=== PATIENT | female | born 1990 | race Caucasian/White ===

== ENCOUNTER 2020-11-07 16:20 | Emergency (ER) | payer BC ==
[2020-11-07 16:41] VITALS: BP 128/77; PULSE 95; TEMP 97.8; BMI 29.4
== END 2020-11-07 16:59 | disposition home or self-care (01) ==
LOC: FER 16:20
DX: G57.11 Meralgia paresthetica, right lower limb (principal)
CPT/HCPCS: 99281-25

== ENCOUNTER 2021-01-18 12:28 | Emergency (ER) | payer BC ==
[2021-01-18 12:55] VITALS: BP 125/82; PULSE 84; TEMP 97.9; BMI 29.2
[2021-01-18 14:44] LABS: BASO % 0.9 % (0-2.0); EOS % 1.2 % (0-4.5); HEMATOCRIT 38.4 % (32.4-45.2); HEMOGLOBIN 13.1 GM/dL (10.7-15.3); LYMPH % 27.5 % (8-40); MCH 30.2 pg (25.7-33.7); MCHC 34.2 g/dl (32.0-36.0); MEAN CELL VOLUME 88.4 fl (80-96); MEAN PLT VOLUME 9.3 fl (7.5-11.1); MONO % 8.7 % (3.8-10.2); NEUT % 61.7 % (42.8-82.8); PLATELET COUNT 191 10^3/uL (134-434); RBC 4.34 M/mm3 (3.60-5.2); RDW 13.9 % (11.6-15.6); WHITE BLOOD COUNT 6.2 K/mm3 (4.0-10.0)
[2021-01-18 15:02] LABS: CHLORIDE 105 mmol/L (98-107); SODIUM 137 mmol/L (136-145)
[2021-01-18 15:04] LABS: ALBUMIN 4.1 g/dl (3.4-5.0); ANION GAP 6 MMOL/L (8-16); BLOOD UREA NITROGEN 8.4 mg/dL (7-18); CALCIUM 8.7 mg/dL (8.5-10.1); CO2 26 mmol/L (21-32)
[2021-01-18 15:05] LABS: GLUCOSE,RANDOM 79 mg/dL (74-106)
[2021-01-18 15:07] LABS: CREATININE 0.7 mg/dL (0.55-1.3); SGOT/AST 15 U/L (15-37); SGPT/ALT 23 U/L (13-61)
[2021-01-18 15:09] LABS: BILIRUBIN,TOTAL 0.7 mg/dL (0.2-1); TOT PROT 7.6 g/dl (6.4-8.2)
[2021-01-18 15:10] LABS: ALK PHOS 53 U/L (45-117)
== END 2021-01-18 15:43 | disposition home or self-care (01) ==
LOC: JER 12:28
DX: R06.9 Unspecified abnormalities of breathing (principal)
CPT/HCPCS: 36415; 80053; 84443; 84484; 85025; 93005; 93010; 99284-25; C9803; U0003; U0005

== ENCOUNTER 2021-08-03 16:27 | Emergency (ER) | payer BC ==
[2021-08-03 16:42] VITALS: TEMP 98.2; BMI 28.3
[2021-08-03 18:50] LABS: PH,URINE 7.5 (5.0-8.0); URINE APPEARANCE CLEAR; URINE BILIRUBIN NEGATIVE (NEGATIVE); URINE COLOR YELLOW; URINE GLUCOSE (UA) NEGATIVE (NEGATIVE); URINE KETONE NEGATIVE (NEGATIVE); URINE LEUK ESTERASE NEGATIVE (NEGATIVE); URINE NITRITE NEGATIVE (NEGATIVE); URINE PROTEIN NEGATIVE (NEGATIVE); URINE UROBILINOGEN 0.2 mg/dL (0.2-1.0)
[2021-08-03 18:52] LABS: HCG,QUALITATIVE URINE Negative
[2021-08-03 19:37] LABS: BASO % 0.8 % (0-2.0); EOS % 1.7 % (0-4.5); HEMATOCRIT 38.2 % (32.4-45.2); HEMOGLOBIN 12.6 GM/dL (10.7-15.3); LYMPH % 31.7 % (8-40); MCH 29.5 pg (25.7-33.7); MCHC 33.1 g/dl (32.0-36.0); MEAN CELL VOLUME 89.1 fl (80-96); MEAN PLT VOLUME 9.8 fl (7.5-11.1); MONO % 9.9 % (3.8-10.2); NEUT % 55.9 % (42.8-82.8); PLATELET COUNT 227 10^3/uL (134-434); RBC 4.29 M/mm3 (3.60-5.2); RDW 13.9 % (11.6-15.6); WHITE BLOOD COUNT 7.2 K/mm3 (4.0-10.0)
[2021-08-03 19:55] LABS: CALCIUM 9.3 mg/dL (8.5-10.1)
[2021-08-03 19:56] LABS: ALBUMIN 4.1 g/dl (3.4-5.0); BLOOD UREA NITROGEN 15.6 mg/dL (7-18)
[2021-08-03 19:59] LABS: CREATININE 0.8 mg/dL (0.55-1.3)
[2021-08-03 20:01] LABS: BILIRUBIN,TOTAL 0.5 mg/dL (0.2-1); TOT PROT 7.7 g/dl (6.4-8.2)
[2021-08-03] MEDS ORDERED: MAG HYDROX/AL HYDROX/SIMETH 30 ML UNIT-DOSE CUP PO ONE (20:54)
[2021-08-03] MEDS ORDERED: FAMOTIDINE 20 MG TABLET PO ONE (20:54)
[2021-08-03] MEDS ORDERED: FAMOTIDINE 20 MG TABLET ONE (21:17)
[2021-08-03] MEDS ORDERED: MAG HYDROX/AL HYDROX/SIMETH 30 ML UNIT-DOSE CUP ONE (21:17)
[2021-08-03 21:38] VITALS: BP 125/78; PULSE 71
== END 2021-08-03 21:25 | disposition home or self-care (01) ==
LOC: JER 16:27
DX: R10.11 Right upper quadrant pain (principal)
CPT/HCPCS: 36415; 76705-TC; 80053; 81003; 83690; 84703; 85025; 99284-25